=== PATIENT | female | born 1990 | race Caucasian/White ===

== ENCOUNTER 2017-10-06 05:41 | Inpatient (IN) | payer OTHER ==
[~2017-10-06] VITALS: Ht 157.5 cm; Wt 83.9 kg
[~2017-10-06 05:41] MED LIST: FERROUS SULFAT325 M3 PO; IBUPROFEN800 M1 PO; PERCOCET 5-3251 EACH PO; PRENATAL TABLE1 EAC2 PO
--- NOTE | 2017-10-06 09:07 | History & Physical ---
General Information and HPI MD Statement: I have seen and personally examined LISA GAGNON and documented this H&P. The patient is a 26 year old female at [39] weeks and [3] days gestation who presented with a chief complaint of [ELECTIVE REPEAT ]. Source of Information: patient Exam Limitations: no limitations History of Present Illness: 26yo, at 39 3/7wks, here for elective repeat , she has no complaints. denies any pain , no VB or LOF. reports GFM. care started at 10 wks, prior x 2, no other issues. 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 Last Menstrual Period: 01/03/2017 Estimated Delivery Date: 10/10/2017 Past carpet tile layer History: non-contributory Past Pregnancies Past Pregnancies: Date of Delivery: 06/201106/11/2016 Gestational Age: 41wks 39 2/7wks Weight: 9lb4oz [id number] Type of Delivery: Anesthesia: spinal Medical History Blood Transfusion Hx: No Neurological: NONE EENT: NONE Cardiovascular: NONE Respiratory: NONE Gastrointestinal: NONE Hepatic: NONE Renal: NONE Musculoskeletal: NONE Psychiatric: NONE Endocrine: NONE Blood Disorders: NONE Cancer(s): NONE PURLER/Reproductive: NONE Surgical History Pertinent Surgical History: Past Family/Social History Psychosocial History Who Do You Live With? spouse, child Primary Language: Greenlandic Smoking Status: Never Smoked ETOH Use: denies use Illicit Drug Use: denies illicit drug use Review of Systems Review of Systems Constitutional: Reports: no symptoms. EENTM: Reports: no symptoms. Cardiovascular: Reports: no symptoms. Respiratory: Reports: no symptoms. GI: Reports: no symptoms. Genitourinary: Reports: see HPI. Musculoskeletal: Reports: no symptoms. Skin: Reports: no symptoms. Neurological/Psychological: Reports: no symptoms. Hematologic/Endocrine: Reports: no symptoms. Immunologic/Allergic: Reports: no symptoms. All Other Systems: Reviewed and Negative Exam & Diagnostic Data Last 24 Hrs of Vital Signs/I&O Intake & Output 10/06 1600 10/06 0800 10/06 0000 Intake Total Output Total Balance Patient 83.915 kg Weight Obstetric Exam Wgt Gained During : 29lbs Pelvimetry: adequate Dilation (cm): 0 Effacement (%): 50 Station: -3 Membranes: intact Fluid: unknown Fundal Height (cm): 39 Multiple Gestation? No Contractions: occasional Infant #1 - FHR Baseline: 140 Category: 1 Estimated Weight: 3300g Presentation: vertex Patient for Induction? No Physical Exam: VSS general: NAD abdomen: gravid, soft, nontender Ext: DCT (-) Labs Blood Type & Rh: o positive Antibody Screen: negative Hct/Hgb & Platelets #1: 11.8/38%,[id number] Hct/Hgb & Platelets #2: 10.2/33.5%,[id number] Rubella: immune VDRL #1: negative VDRL #2: negative HbsAg: negative HIV #1: negative HIV #2 negative 1 Hr P Group B Strep: negative Initial Ultrasound: IUP at 10 wks Anatomy Ultrasound: nl Genetic Testing: nl Last 24 Hrs of Labs/Donis: Microbiology 10/06 905 URINE ROUT: Urine Culture - ORD 10/06 05 URINE ROUT: Urine Culture - COLB Assessment/Plan Assessment/Plan: 26yo, , 39 3/7wks, prior c/s x 2 1. admit pt, admisison labs 2.R/B/A of d/w pty, she understand,all questions answered, informed consent obtained 3. prepare for OR As Ranked By This Provider Problem List: 1. Previous section Core Measures Venous Thromboembolism VTE Risk Factors / No Mechanical VTE Prophylaxis d/t LowRisk-No Interven Req'd No VTE Pharm Prophylaxis d/t LowRisk-No Interven Req'd Attending MD Review Statement Attending Statement Attending MD Statement: examined this patient, discussed with family, discussed w/nursing
--- NOTE | 2017-10-06 09:36 | Operative Report ---
Operative/Inv Procedure Report Surgery Date: 10/06/17 Name of Procedure: Repeat low transverse section via Pfannenstiel Pre-Operative Diagnosis: , 39 3/7WKS intrauterine , prior section 2 Post-Operative Diagnosis: Same Estimated Blood Loss: 750ml Surgeon/Chemist Food: Ho AYALA,Bev Ordonez MD Anesthesia: spinal IV Fluids: Lactated Ringer's 1800 mL Urine Output: 700 mL clear urine at the end of procedure Complications: None Condition: Stable Operative Indication: , 39 3/7wks , prior c/s x 2 for elective repeat section Operative/Procedure Note Note: The patient was taken to the operating room where spinal anesthesia was found to be adequate. She was then prepared and draped in the usual sterile fashion in the dorsosupine position with a left beyer tilt. A Pfannenstiel skin incision was then made with the scalpel and carried through to the underlying layer of fascia with the Bovie. The fascia was incised in the midline and the incision extended laterally with the Patterson scissors. The inferior aspect of the fascial incision was then grasped with the Dane clamps, elevated, and the underlying rectus muscle dissected off bluntly. Attention was then turned to the superior aspect of this incision which, in a similar fashion, was grasped, tented up with the Dane clamps, and the rectus muscle dissected off with the scalpel. The rectus muscle were then in the midline, and the peritoneum identified, tented up, and entered sharply with the Metzenbaum scissors. The peritoneal incision was then extended superiorly and inferiorly with good visualization of the bladder. The bladder blade was then inserted and the vesicouterine peritoneum identified, grasp with the pickups and entered sharply with the Metzenbaum scissors. The incision was then extended laterally and the bladder flap created digitally. The bladder blade was then reinserted and the lower uterine segment incised in the transverse fashion with the scalpel. The uterine incision was then extended laterally , the bladder blade was removed and the head delivered atraumatically. The nose and mouth was suctioned with the suction bulb, and the cord clamped and cut. The infant was handed off to the waiting pediatricians. The placenta was then removed manually, the uterus exteriorized, and cleared of all clots and debris. The uterine incision was repaired with 0 Vicryl in a running locked fashion. A second layer of the same suture was used to obtain excellent hemostasis. The uterus returned to the abdomen. The gutters were cleared of all clots. Ankur was placed at the uterine incision site. The peritoneum closed with 3-0 Vicryl. 2-0 Vicryl was used to reapproximate the rectus muscle. The fascia was reapproximated with 0 Vicryl in a running fashion. 3O plain suture was used to reapproximated subcutaneous adipose tissue. The skin was closed with 4-0 Monocryl subcuticularly. The patient tolerated the procedure well. Sponge, lap and needles counts were correct 2. The patient was taken to the recovery room in stable condition. Findings: Live female in cephalic presentation, DANDY position, and the cord 1, cuff setter lockstitch present at delivery. Weight 7 lbs. 7 oz., Apgars 9 and 9. Upon entering the uterus, 2 cm a window was seen at lower uterine segment on right side. Normal uterus, tubes and ovaries.
[2017-10-07 09:25] LABS: ABSOLUTE BASOPHIL COUNT 0 /CUMM (0.0-0.2); ABSOLUTE EOSINOPHIL COUNT 0.2 /CUMM (0.0-0.7); ABSOLUTE GRANULOCYTE CT 6.5 /CUMM (1.4-6.5); ABSOLUTE LYMPH COUNT 1.9 /CUMM (1.2-3.4); ABSOLUTE MONOCYTE COUNT 0.9 /CUMM (0.10-0.60); BASOPHIL % 0.5 % (0.0-2.0); EOSINOPHIL % 1.8 % (0-5); GRANULOCYTE % 68.3 % (42.2-75.2); HEMATOCRIT 27.9 % (37-47); MEAN CORPUSCULAR HGB 30.1 PG (27.0-31.0); MEAN CORPUSCULAR HGB CONC 33.4 G/DL (33.0-37.0); MEAN CORPUSCULAR VOLUME 90.1 FL (81.0-99.0); MEAN PLATELET VOLUME 7.8 FL (7.4-10.4); PLATELET COUNT 214 /CUMM (130-400); RBC DISTRIBUTION WIDTH 15.5 % (11.5-14.5); WHITE BLOOD CELL COUNT 9.5 /CUMM (4.8-10.8)
--- NOTE | 2017-10-07 11:06 | PN- Post Delivery/GYN ---
Subjective Subjective: pt feeling well. amb / void / jg po. +flatus. +bf. pain well controlled. Objective Last 24 Hrs of Vital Signs/I&O afeb, v/ss Physical Exam: nad abd soft nt nd ff inc c/d/i chelsey min lochia ext +1 b/l le ed Current Medications: Current Medications Sig/Matthew Start time Last Medication Dose Route Stop Time Status Admin Acetaminophen 650 MG Q4P PRN 10/06 0815 AC PO Bisacodyl 10 MG DAILY NEEDED PRN 10/06 914 AC MI Diphenhydramine HCl 25 MG Q6P PRN 10/06 1015 DC IV 10/07 1014 Docusate Sodium 100 MG AT BEDTIME NEED.. 10/06 914 AC PO Enoxaparin Sodium 40 MG DAILY 10/07 1000 DC SC Enoxaparin Sodium 40 MG 2200 10/06 2200 AC 10/06 SC 2200 Ibuprofen 800 MG Q6P PRN 10/06 0815 AC PO Ketorolac 30 MG .STK-MED ONE 10/07 0145 DC Tromethamine IM 10/07 0146 Ketorolac 30 MG Q6-PRN PRN 10/06 1000 AC 10/07 Tromethamine IV 0736 Lactated Ringer's 1,000 ML Q8H 10/06 09 DC 10/06 IV 1700 Metoclopramide HCl 10 MG Q6P PRN 10/06 1015 DC 04/05 IV 10/07 1014 1035 Naloxone HCl 0.2 MG .Q5MIN PRN 10/06 1015 DC IV 10/07 1014 Oxycodone/ 1 TAB Q4P PRN 10/06 0815 AC Acetaminophen PO Oxycodone/ 2 TAB Q4P PRN 10/06 0915 AC Acetaminophen PO Oxytocin 20 UNITS Q8H 10/06 914 DC 10/06 Lactated Ringer's 1,000 ML IV 10/06 1714 0949 Last 24 Hrs of Labs/Donis: Laboratory Tests 10/07/17 0729: CBC w Diff NO MAN DIFF REQ, RBC 3.10 L, MCV 90.1, MCH 30.1, MCHC 33.4, RDW 15.5 H, MPV 7.8, Gran % 68.3, Lymphocytes % 19.9 L, Monocytes % 9.5 H, Eosinophils % 1.8, Basophils % 0.5, Absolute Granulocytes 6.5, Absolute Lymphocytes 1.9, Absolute Monocytes 0.9 H, Absolute Eosinophils 0.2, Absolute Basophils 0 Assessment/Plan Assessment/Plan pod 1 s/p r c/s, doing well, requesting d/c home ru -pain mgmt -oob / amb -routine pop care -ant d/c home ru
[2017-10-07] MEDS ORDERED: PERCOCET 5-3251 EACH PO (14:49)
[2017-10-07] MEDS ORDERED: IBUPROFEN800 M1 PO (14:49)
--- NOTE | 2017-10-08 11:06 | PN- OBGYN ---
Surgical Brief Attending Note Brief Attending Note: pt feeling well. desires d/c home today. afeb, v/ss. exam wnl. pod 2 s/p rpt c/s , doing well. d/c home w/ f/u mon and in 2 wks in office.
--- NOTE | 2017-10-11 12:16 | Discharge Summary ---
Visit Information Visit Dates Admission Date: 10/06/17 Discharge Date: 10/08/17 Hospital Course Course Attending Physician: Bev Teague MD Primary Care Physician: Jacki Inman Hospital Course: 26-year-old, term , she was admitted on 10/06/2017 for elective repeat section. Patient underwent elective repeat section, delivered a viable without complications. During the hospital stay, patient remained in stable condition, tolerate diet, void without difficulties, ambulating well. On exam, vitals are within normal limits, abdomen soft, nontender, uterus firm, fundus below umbilicus, incision dry clean and intact. Lochia mild. Patient was discharged with instructions given. Allergies: Coded Allergies: No Known Allergies (10/06/17) Significant Procedures: RLTCS Disposition Summary Disposition Principal Diagnosis: 39 weeks 3 days intrauterine , prior section Additional Diagnosis: none Discharge Disposition: home or self care Discharge Instructions General Discharge Information Code Status: Full Code Patient's Diet: Regular Patient's Activity: As tolerated Follow-Up Instructions/Appts: Follow-up in office in 2 weeks and 6 weeks Pelvic rest for 6 weeks Medications at Discharge Discharge Medications: Continue taking these medications: Vit No.130/Iron/FA ( Tablet) 27 MG IRON-800 MCG TABLET 1 Tablet ORAL DAILY Ferrous Sulfate (Ferrous Sulfate) 325 MG (65 MG IRON) TABLET 1 Tablet ORAL DAILY Start taking the following new medications: Ibuprofen (Ibuprofen) 800 MG TABLET 800 Milligram ORAL EVERY SIX HOURS NEEDED as needed for UTERINE CRAMPING Qty = 60 No Refills Comments: Last Taken:10/08/17 Time:0815 Oxycodone HCl/Acetaminophen (Percocet 5-325 MG Tablet) 5 MG-325 MG TABLET 2 Tablet ORAL EVERY 4 HOURS NEEDED as needed for PAIN SCALE 7-10 (SEVERE) Qty = 20 No Refills Comments: Last Taken:10/08/17 Time:0530 Copies To: Bev Teague MD Attending MD Review Statement Documenting Attending: Bev Teague MD
== END 2017-10-08 11:00 | DRG 766 ==
LOC: GNO 05:41
PROVIDERS: Obstetrics & Gynecology
PROC: 10D00Z1 Extraction of Products of Conception, Low, Open Approach (ICD-10-PCS; principal; 2017-10-06)
DX: O34.211 Maternal care for low transverse scar from previous cesarean delivery (principal); N85.8 Other specified noninflammatory disorders of uterus; Z3A.39 39 weeks gestation of pregnancy; Z37.0 Single live birth
CPT/HCPCS: GNOS; 87086; J0690; J1650; J1885; J2765; J7120